=== PATIENT | male | born 1940 | race Caucasian/White ===

== ENCOUNTER → 2017-10-26 | Outpatient (CLI) | payer MEDICARE, MEDICAID ==
[~2017-10-26] MED LIST: ASPI-496 PO; GEMF600T3 PO; HYDR25TA6 PO; INSU100I13 SQ-INSULIN; LISI40TA PO; METF10002 PO; PSYL0.5215 PO; TAMS0.4C2 PO
== END ==
LOC: CFH 13:52
PROVIDERS: ATTEND Psychiatry & Neurology Neurology
DX: Z02.9 Encounter for administrative examinations, unspecified (principal)

== ENCOUNTER → 2017-11-12 | Outpatient (CLI) | payer MEDICARE, MEDICAID | END | disposition home or self-care (01) | LOC: RAD 11:24 | PROVIDERS: ATTEND Internal Medicine Cardiovascular Disease | DX: I11.9 Hypertensive heart disease without heart failure (principal); I51.7 Cardiomegaly; R94.31 Abnormal electrocardiogram [ECG] [EKG]; R06.02 Shortness of breath | CPT/HCPCS: 93306 ==

== ENCOUNTER → 2017-11-26 | Outpatient (CLI) | payer MEDICARE, MEDICAID ==
[~2017-11-26] MED LIST changes: +REGADENOSON 0.4 MG/5 ML SYRINGE ONE
== END | disposition home or self-care (01) ==
LOC: RAD 06:38
PROVIDERS: ATTEND Internal Medicine Cardiovascular Disease
DX: R06.02 Shortness of breath (principal); R94.31 Abnormal electrocardiogram [ECG] [EKG]; I10 Essential (primary) hypertension; I45.10 Unspecified right bundle-branch block; E11.9 Type 2 diabetes mellitus without complications
CPT/HCPCS: 78452; 93017; A9502; J2785

== ENCOUNTER 2020-05-19 11:46 | Emergency (ER) | payer MEDICAID, MEDICARE ==
[~2020-05-19] VITALS: Ht 180.3 cm; Wt 125.0 kg
[~2020-05-19 11:46] MED LIST changes: -GEMF600T3 PO; +GEMF600T8 PO; -REGADENOSON 0.4 MG/5 ML SYRINGE ONE
[2020-05-19] MEDS ORDERED: SODIUM CHLORIDE FLUSH 10ML SYR IVF ONE (12:30)
[2020-05-19 12:42] LABS: BASOPHILS # (AUTO) 0.03 x10^3/uL (0-0.1); BASOPHILS % (AUTO) 0 % (0-1); EOSINOPHILS # (AUTO) 0.22 x10^3/uL (0-0.4); EOSINOPHILS % (AUTO) 3 % (1-7); LYMPHOCYTES # (AUTO) 1.57 x10^3/uL (1-3.4); LYMPHOCYTES % (AUTO) 19 % (22-44); MD NO; MEAN CORPUSCULAR HEMOGLOBIN 28.8 pg (27.5-34.5); MEAN CORPUSCULAR HGB CONC 32.7 g/dL (33.2-36.2); MEAN CORPUSCULAR VOLUME 88.1 fL (81-97); MEAN PLATELET VOLUME 8.1 fL (7.4-10.4); MONOCYTES # (AUTO) 0.51 x10^3/uL (0.2-0.8); MONOCYTES % (AUTO) 6 % (2-9); NEUTROPHILS # (AUTO) 5.84 x10^3/uL (1.8-6.8); NEUTROPHILS % (AUTO) 71 % (42-75); PLATELET COUNT 299 x10^3/uL (130-400); RED BLOOD COUNT 5.67 x10^6/uL (4.38-5.82); RED CELL DISTRIBUTION WIDTH 13.5 % (9.4-14.8)
[2020-05-19 12:52] LABS: ALANINE AMINOTRANSFERASE 29 U/L (12-78); ALBUMIN 3.6 g/dL (3.4-5.0); ANION GAP 6 mmol/L (5-15); CALCIUM 8.8 mg/dL (8.5-10.1); CHLORIDE 107 mmol/L (98-107); CREATININE 0.89 mg/dL (0.7-1.3)
[2020-05-19 12:58] LABS: ALKALINE PHOSPHATASE 69 U/L (45-117); BILIRUBIN,TOTAL 0.6 mg/dL (0.2-1.0); TOTAL PROTEIN 7.6 g/dL (6.4-8.2); TROPONIN I < 0.015 ng/mL (0.000-0.045)
--- NOTE | 2020-05-19 13:30 | NUR ---
Pt resting in [facility], no needs expressed at this time, will continue to monitor.
--- NOTE | 2020-05-19 14:30 | NUR ---
Pt resting in [facility], no needs expressed, will continue to monitor.
[2020-05-19 14:51] VITALS: BP 122/68
--- NOTE | 2020-05-19 15:03 | NUR ---
Patient/Caregiver given discharge instructions and they have confirmed that they understand the instructions. Patient ambulatory with steady gait w/ walker. Pt given d/c instructions and demonstrated understanding. Pt left a/o x 4 GCS 15.
== END 2020-05-19 15:10 | disposition home or self-care (01) ==
LOC: ED 12:26
DX: R60.0 Localized edema (principal); R06.02 Shortness of breath; I48.91 Unspecified atrial fibrillation; E11.65 Type 2 diabetes mellitus with hyperglycemia; I10 Essential (primary) hypertension; Z90.89 Acquired absence of other organs
CPT/HCPCS: 36415; 71045; 80053; 83735; 83880; 84443; 84484; 85025; 93005; 93970; 99285

== ENCOUNTER → 2020-07-13 | Outpatient (CLI) | payer MEDICARE, MEDICAID | END | disposition home or self-care (01) | LOC: CVU 06:39 | PROVIDERS: ATTEND Internal Medicine Cardiovascular Disease | DX: I08.0 Rheumatic disorders of both mitral and aortic valves (principal); R94.31 Abnormal electrocardiogram [ECG] [EKG]; R06.02 Shortness of breath | CPT/HCPCS: 93306 ==